=== PATIENT | male | born 1960 | race Caucasian/White ===

== ENCOUNTER 2017-03-09 12:55 | Inpatient (IN) | payer OTHER ==
[~2017-03-09] VITALS: Ht 193 cm; Wt 99.1 kg
--- NOTE | 2017-03-09 12:51 | ED.REPORT ---
HPI-Chest Pain 40 and Over Date of Service Mar 09, 2017 ED Provider: Boni Artis MD The patient is a 56 year old male with history of hypertension, and prior valve replacement on Coumadin, who was brought to the emergency department by EMS for a cardiac arrhythmia. The patient was lifting plywood when he suddenly developed diaphoresis, palpitations, chest pain, and dizziness. When medics arrived the patient was in ventricular tachycardia with a rate of 200 and a blood pressure of 98/50. He was given versed by medics, shocked with 100 joules , and was successfully converted to sinus rhythm. He was also given 324 mg aspirin by medics. He has never had similar symptoms in the past. Nursing Notes Stated Complaint: RESOLVED VT Nursing Notes Reviewed: Yes Allergies: Coded Allergies: No Known Allergies (Unverified , 03/09/17) Scheduled Aspirin (Aspirin) 81 Mg Tablet 81 MG PO DAILY Atorvastatin Calcium (Atorvastatin Calcium) 40 Mg Tablet 40 MG PO DAILY Lisinopril (Lisinopril) 10 Mg Tablet 10 MG PO DAILY Multivitamin (Men's Multi-Vitamin) 1 Each Tablet 1 EACH PO DAILY Warfarin Sodium (Warfarin Sodium) 7.5 Mg Tablet 7.5 MG PO THU,THU,,SAT,SUN Warfarin Sodium (Warfarin Sodium) 3 Mg Tablet 3.75 MG PO MON,FRI General Time Seen by MD: 12:49 Chief Complaint Other (cardiac arrhythmia) Hx Obtained From: Patient, EMS Arrived By: Ambulance Sudden in Onset?: Yes Onset Occurred: Just prior to arrival Context of Onset: Lifting Symptom Duration: Since onset Quality: Painful Severity: Current: Moderate Severity: Maximum: Severe Recent Healthcare: No recent doctor visit, No recent hospitalization Similar Sx Previous: No Past Medical History Past Medical History Hypertension Past Surgical History Valve replacement Family History Noncontributory Smoking History Current Some Day Smoker, Light Tobacco Smoker Social History Other Social History: Local resident Ambulatory Status Independent Review of Systems Cardiovascular: Reports: Chest pain, Palpitations Skin: Reports Diaphoresis Neurologic: Reports: Dizziness Complete sys rev & neg: except as marked. Physical Exam Initial Vital Signs Vital Signs (First) Date Time Temp Pulse Resp B/P Pulse Ox O2 Delivery O2 Flow Rate FiO2 03/09/17 12:52 36.2 84 15 119/85 95 Room Air Initial VS: Reviewed Head / Eyes: Atraumatic, Normocephalic, PERRL ENT: Mucous membranes moist, Conjunctiva normal, No scleral icterus Neck: Supple, Non-tender, Full range of motion Lymphatic: No lymphadenopathy Extremities: Vascular intact, Neuro intact, No swelling, No tenderness Skin: Warm, Dry, No cyanosis Neurologic: Alert, Oriented, Nonfocal Psychiatric: Mood/affect normal, Behavior normal, Normal thought content General/Constitutional: Awake, Alert, No acute distress, Well appearing Respiratory / Chest: Atraumatic, Breath sounds NL, Breath sounds = bilat, No respiratory distress, No rales, No rhonchi, No wheezing, No stridor, No chest tenderness Cardiovascular: Heart rate NL, Regular rhythm, Heart sounds NL, No murmurs, Peripheral circulation NL, Pulses = bilaterally, No gross BP differential Abdomen: Soft, Non-tender, McBurney's non-tender, No guarding, No rebound, BS normoactive, No distention, No hernia, No palpable mass Interpretation & Diagnostics Lab Results Interpretation Result Diagram: 03/09/17 1405 03/09/17 1405 Test 03/09/17 14:05 White Blood Count 15.2th/mm3 (3.8-10.1) Red Blood Count 5.01mil/mm3 (4.40-5.80) Hemoglobin 16.0g/dL (13.8-17.2) Hematocrit 45.5% (41.0-50.0) Mean Corpuscular Volume 90.8fL (81-100) Mean Corpuscular Hemoglobin 31.9pg (27.0-35.0) Mean Corpuscular Hemoglobin Concent 35.2% (32.0-37.0) Red Cell Distribution Width 13.4% (12.3-15.4) Platelet Count 199bil/L (150-400) Neutrophils (%) (Auto) 90.6% (40-74) Lymphocytes (%) (Auto) 4.4% (14-46) Monocytes (%) (Auto) 4.5% (4-12) Eosinophils (%) (Auto) 0.1% (0-5) Basophils (%) (Auto) 0.1% (0-3) Prothrombin Time 27.3sec (8.1-12.5) Prothromb Time International Ratio 2.50ratio Sodium Level 139mEq/L (134-144) Potassium Level 3.8mEq/L (3.5-5.2) Chloride Level 103mEq/L (97-108) Carbon Dioxide Level 19mmol/L (18-29) Blood Urea Nitrogen 15mg/dL (6-24) Creatinine 0.90mg/dL (0.76-1.27) Estimat Glomerular Filtration Rate 92mL/min (>59) Glucose Level 84mg/dL (60-99) Calcium Level 9.5mg/dL (8.5-10.1) Magnesium Level 2.1mg/dL (1.6-2.6) Total Bilirubin 0.7mg/dL (0.0-1.2) Aspartate Amino Transf (AST/SGOT) 58U/L (0-50) Alanine Aminotransferase (ALT/SGPT) 40U/L (0-44) Alkaline Phosphatase 71U/L (25-150) Troponin T 0.300ug/L (0.0-0.011) Total Protein 6.3g/dL (6.4-8.4) Albumin 4.1g/dL (3.4-5.0) ECG Interpretation ECG Interpretation: Sinus rhythm with a rate of 84 Left atrial enlargement LBBB Time: 13:00 Interpreted by: ED physician X-Ray Chest Interpretation Chest Xray Interpretation: IMPRESSION: No acute cardiopulmonary abnormality Dictated by: Miguel Maciel M.D. on 03/09/2017 at 13:32 Interpretation / Wet Read by: Interpret - Radiologist Re-Eval/Medical Decision Source of Hx: Old records, EMS Time of Eval: 16:15 Re-Evaluation/Progress Note: Rechecked the patient. Discussed plan for admission. All questions were addressed. Consultation #1: Referral / Consult Name: Jorge Robert MD Consulted With: Cardiology Call Returned at: 15:14 School Speech Language Pathologist: Agrees with eval, Agrees with plan Consultation #2: Referral / Consult Name: César Gonzalez MD Consulted With: Hospitalist Call Returned at: 17:31 School Speech Language Pathologist: Will see patient, Agrees with eval, Agrees with plan, Accepts admit Counseled Regarding: Diagnosis, Lab results, Need for admission Discharge & Departure Primary Impression: Ventricular tachycardia Additional Impression: Non-STEMI (non-ST elevated myocardial infarction) Disposition: ADMITTED TO HOSPITAL Discharge Condition All VS Reviewed: Yes Condition: Stable Scribe Attestation Portions of this note were transcribed by Danica Robertson. I, Dr. Artis personally performed the history, physical exam and medical decision-making; I reviewed and confirmed the accuracy of the information in the transcribed note. Signed by: Meg Fraser, 03/09/2017 at 1733. Boni Artis MD Mar 09, 2017 12:51 Danica Robertson Mar 09, 2017 12:54
[2017-03-09 12:52] VITALS: BP 119/85; PULSE 84; RESP 15; O2SAT 95
--- NOTE | 2017-03-09 13:34 | DRSVH ---
PROCEDURE: X-RAY CHEST ONE VIEW, PORTABLE ([id number]) INDICATIONS: V-Tachycardia TECHNIQUE: One view of the chest was acquired. COMPARISON: None. FINDINGS: Surgical changes and devices: Median sternotomy. Lungs and pleura: No pleural effusions or pneumothorax. Lungs are clear. Mediastinum: Mediastinal contours appear normal. Heart size is normal. Bones and chest wall: No suspicious bony lesions. Overlying soft tissues appear unremarkable. IMPRESSION: No acute cardiopulmonary abnormality Dictated by: Miguel Maciel M.D. on 03/09/2017 at 13:32 Approved by: Miguel Maciel M.D. on 03/09/2017 at 13:32
[2017-03-09 14:16] LABS: BASOPHILS % (AUTO) 0.1 % (0-3); EOSINOPHILS % (AUTO) 0.1 % (0-5); MONOCYTES % (AUTO) 4.5 % (4-12); Mean Corpuscular Hemoglobin 31.9 pg (27.0-35.0); Mean Corpuscular Volume 90.8 fL (81-100); NEUTROPHILS % (AUTO) 90.6 % (40-74); Platelet Count 199 bil/L (150-400)
[2017-03-09 14:32] LABS: INR 2.5 ratio
[2017-03-09 14:56] LABS: Magnesium 2.1 mg/dL (1.6-2.6)
[2017-03-09 14:58] VITALS: BP 103/66; PULSE 80; RESP 20; O2SAT 99
[2017-03-09 15:01] LABS: TROPONIN T 0.3 ug/L (0.0-0.011)
[2017-03-09] MEDS ORDERED: LISI10TA PO (17:02)
[2017-03-09] MEDS ORDERED: ATOR40TA69 PO (17:02)
[2017-03-09] MEDS ORDERED: WARF7.5T4 PO (17:02)
[2017-03-09] MEDS ORDERED: ASPI-973 PO (17:02)
[2017-03-09] MEDS ORDERED: MULT-544 PO (17:02)
[2017-03-09] MEDS ORDERED: WARF3TAB7 PO (17:02)
[2017-03-09] MEDS ORDERED: Ondansetron 2 mg/mL 2 mL Inj IVPUSH PRN ×2 (17:45→18:10)
[2017-03-09] MEDS ORDERED: Alum-Mag Hydrox-Simeth 30 mL Suspension PO PRN (17:45)
[2017-03-09] MEDS: 0.9% Sodium Chloride 1,000 ML IV SCH (18:06)
[2017-03-09] MEDS ORDERED: Heparin 5,000 Unit/mL Inj SUBQ SCH (18:10)
[2017-03-09] MEDS ORDERED: Polyethylene Glycol (PEG) 17 Gm Powder PO PRN (18:10)
--- NOTE | 2017-03-09 18:19 | PCM.HPMED ---
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 He has been doing well since that time. 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 He today was rushing back from work to his house and started to move around large sheets of plywood when he became acutely lightheaded and dyspneic and diaphoretic. He had no chest pain. Fell his heart pounding and laid down in his trailer. He called his who recommended that he stop drinking so much cough. He continues to live there for about another 10 minutes but had ongoing diaphoresis and palpitations. He then called 911. Medics found him to be in some sustained ventricular tachycardia. He was given presumably medazepam and then cardioverted into sinus rhythm. He immediately felt better. He has no known history of CAD. He denies exertional chest pain or diaphoresis or dyspnea. No history of palpitations. He has been working more recently than usual. Review of Systems: All else reviewed and otherwise unremarkable except as noted in history of present illness Allergies Coded Allergies: No Known Allergies (Unverified , 03/09/17) Home Medications Warfarin adjusted dose [facility] Strep viridans aortic valve endocarditis, 2000 Surgical History Mechanical aortic valve replacement 2000, [facility]. 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 No distress. Fluent speech. Normal affect. Normal skull. Normal nose and ears. Anicteric sclera, symmetric pupils Oropharynx is unremarkable, no facial droop. Neck is supple, normal thyroid. No adenopathy. Lungs are clear, normal effort rate. Heart is regular without murmur gallop or rub. Caloric test to Abdomen soft, nondistended or tender. Extremities are free of pedal edema. Good radial and pedal pulses. Skin is free of rash, lesions. No petechiae or ecchymosis. Joints are grossly normal. Cranial nerves are grossly normal. Motor strength is normal in all extremities. Normal muscular tone. Lab and Diagnostics Labs Troponin 0.300 Result Diagram: 03/09/17 1405 03/09/17 1405 X-Rays, CTs and MRIs Chest x-ray is unremarkable Assessment & Plan Sustained ventricular tachycardia, synchronized cardioversion prior to arrival per EMS. At this point to cardiology see the patient will use metoprolol to suppress further cardiac arrhythmias. Elevated troponin, POA. No evidence of acute coronary syndrome at this point. We will try troponins and risk stratify in 1-2 days with a Lexiscan. Buccal management was discussed with cardiology today. Mechanical aortic valve, POA. Continue warfarin per pharmacy. Patient is full resuscitation. Confirmed today. Inpatient status, anticipate 2 night's study. Pain Evaluation: Adequate Pain Control Resuscitation Status: CPR: Attempt Resuscitation Time spent 40 minutes César Gonzalez MD Mar 09, 2017 18:19
[2017-03-09 19:23] VITALS: BP 116/85; PULSE 78; RESP 20; O2SAT 98
[2017-03-09 19:46] VITALS: BP 114/74; PULSE 70; RESP 16; O2SAT 98
[2017-03-09 19:52] VITALS: PULSE 71
--- NOTE | 2017-03-09 20:54 | CONS ---
[address] [address] CONSULTATION REPORT PATIENT: CA GEE : 1960 MR#: [id number] ADMIT: 03/09/2017 JOB ID: [id number] DATE OF SERVICE: 03/09/2017 IDENTIFICATION: Dr. Boni Artis has asked that I consult on this 56-year-old man brought in by paramedics following cardioversion of a rapid wide-complex tachycardia. HISTORY: The patient's cardiac history dates back to 2000 when he apparently had a Strep viridans endocarditis affecting his aortic valve and requiring an aortic valve replacement. He does not remember any coronary angiography or bypass at that time. He subsequently did well and had an echocardiogram done in 2010 that showed normal left and right systolic function with mild LVH with a normal functioning mechanical prosthetic valve. He had moderate left atrial enlargement with mild mitral regurgitation, mild tricuspid regurgitation. He has not seen a orthopedic shoe maker in the last 5-6 years but is scheduled to see Dr. Damian Mcnulty in [facility] within the next month. He was in his usual state of good health when he was doing a house project today, lifting plywood that was more vigorous activity than usual. He also states that he had not had any breakfast and had consumed large quantities of coffee which was somewhat unusual for him. While lifting the plywood, he noted the onset of rapid regular palpitation that was associated with some weakness and diaphoresis. He sat down, but the discomfort persisted. He noted a very mild left chest pressure that he cannot further characterize. He denies any lightheadedness or presyncope or any dyspnea. Ultimately, he called his who subsequently called the paramedics. Upon their arrival, he reportedly was found to be in a wide-complex tachycardia, at around 200 beats per minute. His blood pressure was 98/50, and he was immediately shocked with 100 joules and was successfully converted to sinus rhythm with complete resolution of all of his symptoms. He was given aspirin and transported to the emergency department where he feels that he is now back to his normal self and is anxious to go home. He denies any previous such episodes, although six months ago, he did have an episode of lightheadedness for around 10 minutes but without any associated palpitations or weakness. He does no regular exercise but remains quite active and is currently building his own home. He has noted no exertional chest discomfort or dyspnea and notes no change in his exercise capacity. He has been maintained on warfarin with INRs followed by his primary care provider and without any out of range measurements. PAST MEDICAL HISTORY: Notable for hypertension and hyperlipidemia but otherwise denies any other health issues. HOME MEDICATIONS: Atorvastatin, lisinopril, and warfarin. FAMILY HISTORY: Father had an MD in his 60s and had atrial fibrillation. No other family history of heart disease. 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 He is . He admits to having around two beers per night on average. He continues to smoke around one pack a week as he has done for the last 20 years. REVIEW OF SYSTEMS: A complete review is performed and is notable for the absence of any fevers or chills. He has had no recent weight change or night sweats. Denies any vision change or ENT problems. Denies any dyspnea, cough, hemoptysis. No history of peptic ulcer disease or GI blood loss. Denies any genitourinary complaints or any unusual musculoskeletal complaints. Has never had a stroke or TIA. Denies any history of thyroid or bleeding disorder. No history of anxiety or depression. PHYSICAL EXAM: Healthy-appearing, middle-aged white male, in no distress, anxious to go home. HR 70, BP 127/88, O2 saturation 95% on room air. Skin: Warm and dry. Lungs: Clear to auscultation and percussion. CV: Nonpalpable PMI with a regular rhythm with a normal S1 and a crisp S2 with a 1/6 systolic ejection murmur. No gallops or rubs. JVP is 4 cm. Carotid and femoral pulses are 2+ bilaterally with a normal upstroke and no bruit. Dorsalis pedis is 2+ on the right, nonpalpable on the left, and posterior tibial pulses nonpalpable on the right and 2+ on the left. Abdomen: Soft, nondistended, nontender without any palpable masses or organomegaly. Normal bowel tones are present without bruits. Extremities: Warm without any clubbing, cyanosis, or edema. Neuro: Moves all four extremities. Psych: Awake, alert, and oriented. LABORATORY: White count is 15.2 with hematocrit of 45. INR is 2.5. Potassium is 3.8, with a magnesium level 2.1. BUN is 15 with creatinine 0.9. Initial troponin is 0.30. Chest x-ray: No acute abnormality. ECG: Personally reviewed and shows sinus rhythm at 84 BPM with a left bundle branch block with probable left atrial enlargement. There is also somewhat of LVH with strain pattern. IMPRESSION: 1. Wide complex tachycardia with associated weakness and hypotension. While this certainly could represent ventricular tachycardia, given the rapid rate, I am surprised that he did not have further hemodynamic compromise. An alternative explanation could be an supraventricular tachycardia that appeared like ventricular tachycardia because of his left bundle branch block. I will attempt to obtain the tracings from the paramedics to further evaluate this. For further evaluation, an echocardiogram will be performed to re-evaluate valvular and ventricular function. He will require an ischemic evaluation to exclude ischemic heart disease as a potential cause of his possible ventricular arrhythmias. I will discuss further with Dr. Nieves in regards to possible EP study versus proceeding with an implantable defibrillator based on those results. In the meantime, I would continue with his current medications with the addition of metoprolol 25 mg q.6 h. and insuring that his potassium stays greater than 4.0. Will attempt to obtain records from [email or web address]. 2. Status post AVR. Will be re-evaluated by echocardiography. 3. Hypertension. Continue current medications. 4. Hyperlipidemia. Lipid panel will be obtained tomorrow morning. 5. Tobacco addiction. The patient is counseled to stop. PLAN: 1. Continue home medications and initiate metoprolol 25 mg q.6 h. 2. Monitor heart rate and rhythm. 3. Continue to track cardiac enzymes and electrolytes. 4. Anticipate echocardiogram and a pharmacologic stress test in the next 48 hours with further consultation with Dr. Nieves, with further recommendations based on those results. I spent 1 hour 10 minutes reviewing the patient's medical record, interviewing and examining the patient, and documenting such. DARRYL
--- NOTE | 2017-03-09 21:14 | PCM.CONPHA ---
Subjective Date of Service: Mar 09, 2017 Syncopal episode, ventricular tachycardia Reason for Pharmacy Consult: Anticoagulation Management Objective Vital Signs Date Time Temp Pulse Resp B/P Pulse Ox O2 Delivery O2 Flow Rate FiO2 03/09/17 19:46 36.4 70 16 114/74 98 Room Air 03/09/17 19:23 36.4 78 20 116/85 98 03/09/17 14:58 36.2 80 20 103/66 99 Room Air 03/09/17 12:52 36.2 84 15 119/85 95 Room Air Weight (Kilograms): 99.700 Height (Feet): 6 Height (Inches): 4.00 Test 03/09/17 14:05 White Blood Count 15.2th/mm3 (3.8-10.1) Red Blood Count 5.01mil/mm3 (4.40-5.80) Hemoglobin 16.0g/dL (13.8-17.2) Hematocrit 45.5% (41.0-50.0) Mean Corpuscular Volume 90.8fL (81-100) Mean Corpuscular Hemoglobin 31.9pg (27.0-35.0) Mean Corpuscular Hemoglobin Concent 35.2% (32.0-37.0) Red Cell Distribution Width 13.4% (12.3-15.4) Platelet Count 199bil/L (150-400) Neutrophils (%) (Auto) 90.6% (40-74) Lymphocytes (%) (Auto) 4.4% (14-46) Monocytes (%) (Auto) 4.5% (4-12) Eosinophils (%) (Auto) 0.1% (0-5) Basophils (%) (Auto) 0.1% (0-3) Prothrombin Time 27.3sec (8.1-12.5) Prothromb Time International Ratio 2.50ratio Sodium Level 139mEq/L (134-144) Potassium Level 3.8mEq/L (3.5-5.2) Chloride Level 103mEq/L (97-108) Carbon Dioxide Level 19mmol/L (18-29) Blood Urea Nitrogen 15mg/dL (6-24) Creatinine 0.90mg/dL (0.76-1.27) Estimat Glomerular Filtration Rate 92mL/min (>59) Glucose Level 84mg/dL (60-99) Calcium Level 9.5mg/dL (8.5-10.1) Magnesium Level 2.1mg/dL (1.6-2.6) Total Bilirubin 0.7mg/dL (0.0-1.2) Aspartate Amino Transf (AST/SGOT) 58U/L (0-50) Alanine Aminotransferase (ALT/SGPT) 40U/L (0-44) Alkaline Phosphatase 71U/L (25-150) Troponin T 0.300ug/L (0.0-0.011) Total Protein 6.3g/dL (6.4-8.4) Albumin 4.1g/dL (3.4-5.0) Assessment/Plan Assessment/Plan WARFARIN MANAGEMENT A\ 56YO M ADMITTED FOR NSTEMI HISTORY INCLUDES MECHANICAL AORTIC VALVE HOME WARFARIN 3.75MG MON, FRI 7.5MG EVERY OTHER DAY OF WEEK GOAL INR= 2-3, CURRENT INR= 2.5 HCT=45.5 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
--- NOTE | 2017-03-09 22:06 | NUR ---
1935Admit note: Pt arrived to room#2 per wheelchair from ED at 1935. Pt was alert/orientated x3 was able to ambulate on to scale and into bed with out any problems. Denies any SOB or pain, tele was applied and rhythm was confirmed with environmental field technician SR rate in 80s. Admit was completed and pt made comfortable was given supplies to wash up. was here for short period of time and went home for the night.
[2017-03-09 23:48] VITALS: BP 115/75; PULSE 63; RESP 16; O2SAT 96
[2017-03-10] VITALS (9 sets, daily range): BP systolic 100–131; BP diastolic 61–78; PULSE 56–70; RESP 14–18; O2SAT 95–99
[2017-03-10] MEDS: 0.9% Sodium Chloride 1,000 ML IV SCH ×2 (04:06→13:54)
[2017-03-10 04:42] LABS: INR 2.28 ratio
[2017-03-10 05:23] LABS: Magnesium 2.1 mg/dL (1.6-2.6)
[2017-03-10 05:24] LABS: TROPONIN T 0.71 ug/L (0.0-0.011)
--- NOTE | 2017-03-10 09:32 | PCM.PHAPRO ---
Progress Warfarin Management by Pharmacy: -Indication: mechanical aortic valve replacement for strep viridans endocarditis -Home Dose: 3.75mg on MoFr and 7.5mg all other days -Inr Goal: 2-3 -Drug Interactions: none noted -Concurrent Anticoagulation: none noted -Coagulation Trends: [facility] -Mar 10-Mar 2.5 2.28 -0.22 3.75 6MG -Plan: will give the calculated weekly average of warfarin 6mg this evening Bridgette Redd [facility] Mar 10, 2017 09:32
--- NOTE | 2017-03-10 11:39 | DRSVH ---
[facility] [address] [place] [address] Echocardiogram Report Name: CA GEE PStudy Dk e: 03/10/2017 Height: 76 in Hospital Exam Location: [facility] Weight: 21 9 lb Gender: Male BSA: 2.3 m2 : 1960 Age: 56 yrs BP: 107/67 mmHg Reason For Study: V-TACH History: AVR Ordering Physician: HOSPITALIST [facility] Performed By: Samantha Stuart Referring Physician: Sandor Woodwardist Interpretation Summary Left ventricular systolic function is normal without focal wall motion abnormalities with the ejection fraction visually estimated to be 65-70%. There is mild-moderate concentric left ventricular hypertrophy with mild systolic anterior motion of the chordal apparatus but no Doppler evidence for significant left ventricular outflow tract obstruction. Assessment of diastolic parameters indicates normal left ventricular diastolic function and normal filling pressures. The right ventricle is at the upper limits of normal in size and right ventricular systolic function is normal. The right ventricular systolic pressure is estimated at 42 mmHg assuming a right atrial pressure of 3 mm Hg. The left atrium is severely dilated and the right atrium is mildly dilated. There is mild mitral regurgitation and mild tricuspid regurgitation. There is a well-seated bi-leaflet (St. [employer]htaq) aortic mechanical prosthesis with normal gradients through the prosthetic valve suggesting normal prosthetic aortic valve function. The ascending aorta and aortic arch are mildly enlarged. Procedure: A two-dimensional transthoracic echocardiogram with color flow and Doppler was performed. The study quality was technically good. There is no prior echocardiogram noted for this patient. The patient was in normal sinus rhythm during the exam. Left Ventricle: The left ventricle is normal in size. There is mild- moderate concentric left ventricular hypertrophy. The LVOT velocity is 1.5 m/s. The left ventricular outflow velocity with valsalva is 1.6. There is no echo evidence for significant left ventricular outflow tract obstruction. Left ventricular systolic function is normal without focal wall motion abnormalities. The ejection fraction is estimated to be 65-70%. Assessment of diastolic parameters indicates normal left ventricular diastolic function and normal filling pressures. Right Ventricle: The right ventricle is at the upper limits of normal in size. The right ventricular systolic function is normal. Atria: The left atrium is severely dilated. The right atrium is mildly dilated. The interatrial septum is intact with no evidence for an atrial septal defect. There is no Doppler evidence for an interatrial shunt. Mitral Valve: The mitral valve is normal in structure and function. There is systolic anterior motion of the chordal apparatus. There is mild mitral regurgitation. Aortic Valve: There is a bi-leaflet (St. Mushtaq) aortic mechanical prosthesis. The prosthetic aortic valve is well-seated. The gradients through the prosthetic aortic valve are within the normal range for this type of valve. The prosthetic aortic valve function is normal. No aortic regurgitation is present. Tricuspid Valve: The tricuspid valve leaflets are thin and pliable. The TR jet is eccentric. There is mild tricuspid regurgitation. The right ventricular systolic pressure is estimated at 42 mmHg assuming a right atrial pressure of 3 mm Hg. Pulmonic Valve: The pulmonic valve is not well seen, but is grossly normal. There is no pulmonic valvular regurgitation. Great Vessels: The aortic root is normal size. The ascending aorta is mildly enlarged. The aortic arch is mildly enlarged. The IVC is of normal diameter and collapses greater than 50% with a sniff. This suggests a low right atrial pressure of 3 mm Hg. Pericardium/ Pleura There is no pericardial effusion. There is no pleural effusion. MMode/2D Measurements & Calculations LVIDd: 4.8 cm RA long axis LVOT diam: 2.1 cm LVIDs: 3.7 cm LA A2 area: 30.9 cm Ao root diam FS: 23.6 % LA A4 area: 29.7 cm RA area EPSS: 0.12 cm LA length (vol) Aortic Jxn: 2.9 cm IVSd: 1.6 cm : 22.0 cm asc Aorta Diam LVPWd: 1.3 cm LA vol: 125.4 ml RA vol LA vol index : 72.7 ml Ao Arch Diam (Prox RA Trans): 3.2 cm : 31.6 mm2 IVC diam: 2.1 cm LV brian. diameter/BSA LV sys. diameter/BSA RVD1 (basal) RVD2 (mid): 3.2 cm (cm/m^2): 2.1 (cm/m^2): 1.6 TAPSE: 1.8 cm Doppler Measurements & Calculations Ao V2 max MV E max misael MV E/A: 1.7 TR max misael : 286.4 cm/sec : 68.8 cm/sec Med Peak E' Misael : 312.5 cm/sec Ao max PG MV A max misael TR max PG : 32.8 mmHg : 40.2 cm/sec E/E' med: 7.6 : 39.1 mmHg Ao mean PG MV P1/2t: 56.7 msec Lat Peak E' Misael PA V2 max : 19.1 mmHg : 100.6 cm/sec LVOT Max Misael E/E' lat: 5.5 PA mean PG : 153.3 cm/sec E/e' average: 6.5 PA Accel Time HIEU(I,D): 1.9 cm : 0.12 sec sev ratio MV dec time MV P1/2t max misael Ao V2 mean LV V1 max PG : 0.19 sec : 205.2 cm/sec MVA(P1/2t): 3.9 cm2 Ao V2 VTI: 53.9 cm LV V1 VTI HIEU(V,D): 1.8 cm2 : 31.1 cm PA V2 mean HIEU indexed to BSA : 72.8 cm/sec (cm^2/m^2): 0.84 Reading Physician:11:18 AM
--- NOTE | 2017-03-10 13:07 | PROG NOTE ---
[address] [address] PROGRESS NOTE PATIENT: CA GEE : 1960 MR#: [id number] ADMIT: 03/09/2017 JOB ID: [id number] DATE: 03/10/2017 The patient remains quite comfortable, feeling that he is at his normal baseline state. He has had no chest discomfort, dyspnea or palpitations. He is very anxious to go home. He reports that his PCP had recently started him on lisinopril because of hypertension, but he cannot relate any specific blood pressures. PHYSICAL EXAM: Healthy-appearing, middle-aged male who appears somewhat "high strung." HR 64, BP 118/75, O2 saturation 99% on room air. Lungs: Clear bilaterally to auscultation. CV: Regular rate and rhythm with a 1/6 systolic ejection murmur at the upper sternal border. Carotid pulses are 2+ with a normal upstroke. There is no JVD. Abdomen: Soft, nondistended. Extremities: Warm without edema. LABORATORY: His initial troponin of 0.30 increased to 0.71 and remained unchanged on the 3rd blood draw. His potassium is 5.0 with a BUN of 14 and a creatinine of 1.0. His INR today was 2.3. His ECG continues to show LVH with strain pattern with a borderline left bundle branch block. His echocardiogram shows vigorous LV systolic function with a normally functioning prosthetic valve with mild mitral and tricuspid regurgitation. He has severe left atrial enlargement and mild right atrial enlargement with mild to moderate concentric LVH but no evidence for any outflow tract obstruction. Pulmonary artery pressures are slightly increased at 42 mmHg but with a normal CVP of 3 mmHg. Telemetry: Shows only sinus rhythm. IMPRESSION: 1. Rapid wide-complex tachycardia. We have been unable to obtain the tracings from the paramedics to identify the mechanism of his tachycardia. I discussed the case with Dr. Nieves, who agrees that given the reported rate and absence of hemodynamic collapse that it more likely reflects an SVT than a VT. He agrees with an ischemic evaluation with consideration for a possible EP study following, although the patient is somewhat hesitant at this point. I would continue with metoprolol although will hold it in anticipation of a stress test tomorrow for an ischemic evaluation to ensure the absence of any underlying myocardial ischemia. If this is benign, then final decision can be made in regards to proceeding with an EP study versus impaired treatment with beta blockade. 2. Elevated troponin. I suspect this is more likely secondary from demand ischemia from his tachyarrhythmia and subsequent cardioversion rather than an acute coronary syndrome. Given this, I think it is safe to proceed with stress testing at this time. I will obtain a Lexiscan sestamibi study in lieu of an exercise treadmill test given his borderline LBBB. 3. Hypertension with probable hypertensive heart disease. His echocardiogram is consistent with hypertensive heart disease although his blood pressures appear to be fairly well controlled now that he is on lisinopril and metoprolol. 4. Borderline hyperlipidemia. His LDL here appears to be adequately controlled at 83. PLAN: 1. Continue to track troponins until they trend downward. 2. Obtain a pharmacologic phase of either myocardial perfusion imaging test tomorrow with further discussion in regard to proceeding with an EP study.
--- NOTE | 2017-03-10 14:54 | PCM.PNMED ---
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 Overnight: No acute events. Today: The patient feels well and denies any chest pain. He is very eager to go home. The remainder of the review of systems is negative except as noted above. Exam Vital Signs Vital Sign - Last Date Time Temp Pulse Resp B/P Pulse Ox O2 Delivery O2 Flow Rate FiO2 03/10/17 12:14 36.8 64 18 100/61 98 Room Air 03/10/17 08:30 1.50 Intake and Output 03/09/17 03/09/17 03/10/17 Cumulative From/Thru 15:00 23:00 07:00 03/09/17 12:52 - 03/10/17 06:40 Intake Total 750 ml 750 ml Output Total 2250 ml 2250 ml Balance -1500 ml -1500 ml Intake Oral 750 ml 750 ml Output Urine Total 2250 ml 2250 ml Exam Oriented 3. No distress. Fluent speech. Normal affect. Normal skull. Normal nose and ears. Anicteric sclera, symmetric pupils Oropharynx is unremarkable, no facial droop. Neck is supple, normal thyroid. No adenopathy. Lungs are clear, normal effort rate. Heart is regular with a crisp mechanical valve. Abdomen soft, nondistended or tender. Extremities are free of pedal edema. Skin is free of rash, lesions. No petechiae or ecchymosis. Joints are grossly normal. Cranial nerves are grossly normal. Motor strength is normal in all extremities. Normal muscular tone. 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 Wide complex tachycardia, likely SVT, but VT is a possibility, status post synchronized cardioversion prior to arrival per EMS. Present on admission, stable. -Cardiology consulted, we will follow recommendations -Pharmacologic stress test per cardiology tomorrow -Continue beta kaykay. Hold for stress test tomorrow. -Continue telemetry monitoring Elevated troponin, likely from demand ischemia, POA. -No evidence of acute coronary syndrome at this point. -Continue to trend troponin Mechanical aortic valve, POA. -Continue warfarin per pharmacy. Hypertension -Continue lisinopril and metoprolol Patient is full resuscitation. Disposition: Anticipate patient will be in the hospital for 1-2 more days. Resuscitation Status: CPR: Attempt Resuscitation Attending Statement Patient seen and examined with house staff. Agree with all attached documentation. Jocelyn Pickett DO Mar 10, 2017 14:06 César Gonzalez MD Mar 10, 2017 16:49
--- NOTE | 2017-03-10 17:27 | NUR ---
Ambulation Pt up walking in [place] multiple times today. Steady gait and steady vitals. No c/o chest pain or SOB. HR SR 60's-70's.
[2017-03-11] VITALS (7 sets, daily range): BP systolic 131–157; BP diastolic 73–91; PULSE 59–78; RESP 16–22; O2SAT 96–100
[2017-03-11] MEDS: 0.9% Sodium Chloride 1,000 ML IV SCH ×3 (00:06→19:43)
[2017-03-11 05:50] LABS: INR 1.45 ratio
--- NOTE | 2017-03-11 09:23 | NUR ---
Social Work Note: Screen Note Data& Assessment: EMR reviewed. Jase Gomez is a 56 year old male admitted on 03/09/2017 for V-tach and NSTEMI. Pt has [employer] insurance coverage and sees Lyndon Parker MD for primary care. Pt lives in [place] with family and is independent at baseline. Per RN, pt is ambulating the laton SB. SW to continue to follow for any pt needs or MD orders. No discharge needs identified at this time. Plan: Anticipated discharge home via POV when medically ready. SW to continue to follow for any pt needs or MD orders. No discharge needs identified at this time. MARY Toure
--- NOTE | 2017-03-11 11:48 | NUR ---
Note Patient denied having any pain, shortness of breath or discomfort. Patient ambulated in hallways without any difficulty. Patient was insisting on having a shower this morning prior to nuclear /stress test. Patient showered and was reconnected to telemetry afterwards. Patient remained madelyn to go for his test and hopefully be discharge home if test results allow it. Patient remained NPO with occasional ice chips only. Out for procedure mid-morning today.
--- NOTE | 2017-03-11 14:17 | DRSVH ---
PROCEDURE: 1 DAY PHARMACOLOGICAL STRESS TEST Rest and pharmacological stress myocardial perfusion SPECT with gated imaging and ejection fraction RADIOPHARMACEUTICAL: 8.3 mCi Tc-99m tetrafosmin IV at rest and 24.0 mCi Tc-99m tetrafosmin IV at peak effect of pharmacological stress. A [id number] was performed. INDICATIONS: 56 year-old man with ventricular tachycardia. Risk factors for coronary artery disease include hypertension, hyperlipidemia, smoking and family history. He has aortic valve replacement. TECHNIQUE: Radiopharmaceutical was injected at peak stress test, and also at rest. SPECT images wer e obtained. SPECT myocardial perfusion images were displayed in short axis, horizontal long axis, an d vertical long axis views. Gated images were reviewed using [employer] software. COMPARISON: None. CARDIAC STRESS: A pharmacologic stress test was performed under the supervision of an attending staff, using an infus ion of [employer]. Hemodynamic data: There is normal blood pressure and heart rate response to pharmacologic stress. Symptoms: The patient denied anginal chest pain. Aminophylline: Not needed EKG: No diagnostic changes of ischemia; her PVCs. FINDINGS: Raw data: There is good myocardial uptake of radiotracer. No significant motion artifacts. Left ventricle function: Gated images demonstrate normal left ventricular wall thickening. No segme ntal wall motion abnormalities. No transient ischemic dilation. Left ventricle resting end diastolic volume is normal. Left ventricle stress ejection fraction is 64%; normal range is above 45%. Myocardial perfusion: There is normal distribution of activity in the right and left ventricular erasmo cardium. No fixed or reversible perfusion defects. IMPRESSION: 1. Normal myocardial perfusion images. 2. Normal left ventricular volume and systolic function. 3. No chest pain or diagnostic EKG changes for ischemia. PQRS ATTESTATIONS: Measure 322 - Is this imaging test primarily performed on a low-risk surgery patient for preoperative evaluation within 30 days preceding their low-risk non-cardiac surgery? Low-risk surgery is defined as cardiac or myocardial infarction less than 1%, including (but not limited to) endoscopic pr ocedures, superficial procedures, cataract surgery, and excisional breast surgery: Answer: No Measure 323 - Is this imaging test performed primarily for the monitoring of an asymptomatic patient who had percutaneous coronary intervention on the visit date or within 2 years of the visit date? An swer: No Measure 324 - Is this imaging test performed primarily for the initial detection and risk assessment on an asymptomatic, low coronary heart disease patient? Low CHD risk definition = clinicians should consider the maximum number of available patient factors used to estimate risk based on [place] (A TP III criteria), typically age, gender, diabetes, smoking status, and use of blood pressure medicati on, and integrate age appropriate estimates for missing elements, such as LDL or standard blood press ure. Answer: No Dictated by: Cheyenne Bhandari M.D. on 03/11/2017 at 14:12 Approved by: Cheyenne Bhandari M.D. on 03/11/2017 at 14:15
--- NOTE | 2017-03-11 15:38 | PCM.PNMED ---
Subjective Date of Service Mar 11, 2017 Subjective He is doing well. No problems with palpitations, chest pain or dyspnea. His normal appetite. No difficulty with nausea or abdominal pain. No overnight events Exam Vital Signs Vital Sign - Last Date Time Temp Pulse Resp B/P Pulse Ox O2 Delivery O2 Flow Rate FiO2 03/11/17 13:23 70 16 151/87 100 Room Air 03/11/17 07:26 36.6 03/10/17 08:30 1.50 Intake and Output 03/10/17 03/10/17 03/11/17 Cumulative From/Thru 15:00 23:00 07:00 03/09/17 12:52 - 03/11/17 05:40 Intake Total 1954 ml 200 ml 2904 ml Output Total 1350 ml 1000 ml 4600 ml Balance 604 ml -800 ml -1696 ml Intake Oral 1954 ml 200 ml 2904 ml Output Urine Total 1350 ml 1000 ml 4600 ml # Bowel Movements 0 0 0 Exam Alert and oriented -3, no distress. Fluent speech Anicteric sclera. Lungs are clear with normal rate and effort Heart is regular without murmur gallop or rub Abdomen soft nontender, flat Extremities are free of edema. Skin is free of rash or lesions. 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 Wide complex tachycardia, likely SVT, but VT is a possibility, status post synchronized cardioversion prior to arrival per EMS. Present on admission, stable. -Cardiology consulted, we will follow recommendations -Pharmacologic stress test per cardiology tomorrow -Continue beta kaykay. Stress test reveals normal perfusion. -Continue telemetry monitoring Spoke with cardiology, they would like to offer an electrophysiology study for tomorrow March 12 Elevated troponin, likely from demand ischemia, POA. Stable -No evidence of acute coronary syndrome at this point. No further workup. Perfusion study normal and stress test. Mechanical aortic valve, POA. Stable -Continue warfarin per pharmacy. Hypertension, POA and stable -Continue lisinopril and metoprolol Patient is full resuscitation. Disposition: Discharge after transfusion cardiology workup. Resuscitation Status: CPR: Attempt Resuscitation César Gonzalez MD Mar 11, 2017 15:38
[2017-03-11] MEDS ORDERED: Warfarin 5 MG, Warfarin 2.5 MG PO ONE ×2 (17:00)
--- NOTE | 2017-03-11 18:19 | NUR ---
Nuclear test follow up Patient returned from nuclear test this afternoon. Patient continued to deny having any pain, shortness of breath or discomfort however he was anxious to go home. Patient was seen by attending aircraft accessories mechanic this evening. Patient to remain in the hospital for follow up EP study tomorrow. Patient and his both agreed to this procedure. Patient was encouraged to take PO fluids this evening he understood his NPO status after midnight tonight for procedure tomorrow. Patient and his were able to view hospital provided EP study internet video/education this evening.
--- NOTE | 2017-03-11 20:05 | NUR ---
Metoprolol Holding metoprolol per Dr. Irwin, patient scheduled for until electrophysiology cadiac study at noon tomorrow.
[2017-03-12] VITALS (14 sets, daily range): BP systolic 124–151; BP diastolic 73–92; PULSE 64–75; RESP 13–25; O2SAT 95–99
[2017-03-12 05:50] LABS: INR 1.15 ratio
--- NOTE | 2017-03-12 06:29 | NUR ---
Cardiac/EP study Patient independent in room, slept well and NPO since midnight for EP study, HR 64 at this time with [address] depression, denied any pain this shift, no distress noted, uneventful shift, will continue to monitor. Addendum: 03/12/17 at 0631 by NICHOLE PAK RN Amended: Links added.
--- NOTE | 2017-03-12 12:17 | PCM.PHAPRO ---
Progress Date of Service: Mar 12, 2017 Date 3-Mar 10-Mar 11-Mar 12-Mar INR 2.5 2.28 1.45 1.15 INR change -0.22 -0.83 -0.3 Warf Dose 3.75 HOLD 7.5 7.5MG Sara Escalante PharmD Mar 12, 2017 12:17
[2017-03-12 13:08] LABS: BASOPHILS % (AUTO) 0.6 % (0-3); EOSINOPHILS % (AUTO) 1.6 % (0-5); MONOCYTES % (AUTO) 9.4 % (4-12); Mean Corpuscular Hemoglobin 31.9 pg (27.0-35.0); NEUTROPHILS % (AUTO) 64.7 % (40-74); Platelet Count 207 bil/L (150-400)
[2017-03-12] MEDS ORDERED: fentaNYL-PF 50 mCg/mL 2 mL Inj ONE (14:23)
[2017-03-12] MEDS ORDERED: Heparin 10,000 Unit/1,000 mL NS Premix IV ONE (14:36)
[2017-03-12] MEDS ORDERED: Vancomycin 1,000mg/200 mL NS IV ONE (14:46)
[2017-03-12] MEDS ORDERED: Isoproterenol 200 mCg/50 mL D5W IV IV ONE ×2 (15:19→15:44)
--- NOTE | 2017-03-12 15:24 | NUR ---
Social Work: Multidisciplinary Rounds and Readiness for d/c D: Pt discussed in multidisciplinary rounds. Pt is scheduled for a stress test today and is anticipated to be ready for discharge after this. Team identified no sw needs or concerns re: pt's ability to care for self . EMR reviewed, pt has been ambulating I during admission and no sw needs or concerns have been identified at this time. A: Pt who is I at baseline. P: Anticipate pt to discharge home via POV and no sw needs; BLACKJACK DEALER to continue to follow to assess for discharge needs if they arise. MARY Deleon
[2017-03-12] MEDS: 0.9% Sodium Chloride 1,000 ML IV SCH (16:06)
[2017-03-12] MEDS ORDERED: Warfarin 2.5 MG, Warfarin 5 MG PO ONE ×2 (17:00)
--- NOTE | 2017-03-12 17:29 | NUR ---
EP STUDY At 1400 patient transferred to [facility] for EP study. Second IV access started prior to departure, patient denies pain, nausea, and shortness of breath. NPO, s/l x2, RA, CBC drawn and showed WBC within normal limits. At 1730 report from Olena GODINEZ at [facility] states patient has right and left groin sites, which will have manual pressure, total of four punctures, patient to remain down until 2100, able to eat and drink and will return to floor at 1900. Plan to observe overnight, telemetry 50-60. Sub-therapeutic INR, 100mg Lovenox tubed to [facility].
--- NOTE | 2017-03-12 18:41 | PCM.PNMED ---
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 Overnight: No acute events. Today: The patient states he is quite anxious to be discharged and does not want to remain in the hospital much longer. The remainder of the review of systems is negative except as noted above. Exam Vital Signs Vital Sign - Last Date Time Temp Pulse Resp B/P Pulse Ox O2 Delivery O2 Flow Rate FiO2 03/12/17 18:00 74 15 125/73 96 Room Air 03/12/17 13:47 36.6 03/10/17 08:30 1.50 Intake and Output 03/11/17 03/11/17 03/12/17 Cumulative From/Thru 15:00 23:00 07:00 03/09/17 12:52 - 03/12/17 05:14 Intake Total 1840 ml 740 ml 5484 ml Output Total 1100 ml 2175 ml 7875 ml Balance 740 ml -1435 ml -2391 ml Intake Oral 1840 ml 740 ml 5484 ml Output Urine Total 1100 ml 2175 ml 7875 ml # Voids 5 5 # Bowel Movements 0 0 Exam Oriented 3. No distress. Fluent speech. Normal affect. Normal skull. Normal nose and ears. Anicteric sclera, symmetric pupils Oropharynx is unremarkable, no facial droop. Neck is supple, normal thyroid. No adenopathy. Lungs are clear, normal effort rate. Heart is regular with a crisp mechanical valve. Abdomen soft, nondistended or tender. Extremities are free of pedal edema. Skin is free of rash, lesions. No petechiae or ecchymosis. Joints are grossly normal. Cranial nerves are grossly normal. Motor strength is normal in all extremities. Normal muscular tone. 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 Wide complex tachycardia, likely SVT, but VT is a possibility, status post synchronized cardioversion prior to arrival per EMS. Present on admission, stable. -Cardiology consulted, we will follow recommendations -Continue beta kaykay. Stress test reveals normal perfusion. -Continue telemetry monitoring. -EPS study today Elevated troponin, likely from demand ischemia, POA. Stable -No evidence of acute coronary syndrome at this point. -No further workup. Perfusion study normal and stress test. Mechanical aortic valve, POA. Stable -Continue warfarin per pharmacy. Hypertension, POA and stable -Continue lisinopril and metoprolol Patient is full resuscitation. Disposition: Discharge tomorrow. Resuscitation Status: CPR: Attempt Resuscitation Attending Statement The patient was seen and examined with staff. Agree with all attached documentation. Jocelyn Pickett DO Mar 12, 2017 18:31 César Gonzalez MD Mar 13, 2017 10:30
--- NOTE | 2017-03-12 19:09 | NUR ---
[facility] EP STUDY PT AND HIS NURSING CARE WERE TRANSFERRED BACK TO ROOM 2021 AT 1900. BILATERAL GROINS HAVE BEEN SOFT, NON TENDER, NO BLEEDING NOTED SINCE RETURN FROM METALIZING MACHINE OPERATOR AT 1700. PT HAS TOLERATED MEAL AND ALSO VOIDED PER URINAL. REPORT GIVEN TO BOB Perea RN. TELE ON. HEPARIN DOSE ADMINISTRATION TIME CLARIFIED WITH DR MERRILL.
--- NOTE | 2017-03-12 19:18 | PROCED ---
[address] [address] PROCEDURE NOTE PATIENT: CA GEE : 1960 MR#: [id number] ADMIT: 03/09/2017 JOB ID: [id number] DATE OF SERVICE: 03/12/2017 PREOPERATIVE DIAGNOSIS(ES): Wide complex tachycardia. POSTOPERATIVE DIAGNOSIS(ES): Wide complex tachycardia. PROCEDURES PERFORMED: 1. Comprehensive electrophysiology study. 2. Arrhythmia provocation. 3. Arrhythmia provocation with isoproterenol infusion. 4. Fluoroscopy. SURGEON: Manager Management: Vishnu Nieves MD, electrophysiology attending ASSISTANTS: Morris Archibald. ANESTHESIA: Very gentle dosing of Versed and fentanyl was utilized for an appropriate level of sedation. 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 He was found to be in a rapid wide complex tachycardia at greater than 200 beats per minute. He was promptly cardioverted and has remained hemodynamically stable and was without dysrhythmia in the hospital. Echocardiography was reassuring, as was nuclear perfusion stress testing. Given the wide complex nature of his tachycardia I recommended an EP study to assess for inducibility of ventricular tachycardia. We discussed the risks benefits of the EP study in detail and ultimately he wished to proceed. PROCEDURAL DESCRIPTION: Following informed consent, the patient was taken to the EP laboratory in a fasting nonsedated state, where he was prepped in the usual sterile fashion. The bilateral groins were infiltrated with 1% lidocaine, then using modified Seldinger technique two 6-Micronesian sheaths were inserted into the right femoral vein nd a 7- and 8-Micronesian sheath were inserted into the left femoral vein. Under fluoroscopic guidance, a deflectable decapolar catheter was advanced to the coronary sinus with the most proximal bipoles at the os of the sinus. A Ezekiel quadripolar catheter was advanced to the RV apex and a CRD2 His catheter was advanced to the His position. A comprehensive electrophysiology study was undertaken with right atrial pacing recording, right ventricular pacing recording, His bundle recording, and left atrial pacing via the coronary sinus catheter. Retrograde conduction showed a concentric atrial activation pattern. Antegrade conduction showed varying degrees of left bundle branch aberrancy, with faster rates. On a few occasions we did see an antegrade jump with at most one single echo. Aggressive induction maneuvers were performed from the ventricle with single, double, and triple extrastimuli at multiple cycle lengths, both on and off isoproterenol to a maximal dose of 4 mcg/minute. Despite these aggressive maneuvers, no dysrhythmias were induced, neither atrial nor ventricular. Therefore, no ablation was performed. All catheters and sheaths were removed. Manual pressure was held for hemostasis. The patient was transferred to the [facility] for monitoring and bed rest. COMPLICATIONS: None. ESTIMATED BLOOD LOSS: Negligible. FINDINGS: 1. Baseline rhythm is sinus with an RR interval of 890 msec, TN 176 msec, QRS 118 msec, and a left bundle branch morphology. QT interval 427 msec. 2. Intracardiac intervals: AH interval 105 msec, HV 50 msec. 3. Retrograde conduction: Atrial activation was concentric. VA Wenckebach is seen at 290 msec. Ventricular ERP is 240 msec at a [address] 4. Antegrade conduction: AV Wenckebach is seen 290 msec. Fast pathway ERP is 280 msec at a [address] Again on one or two occasions a single typical echo was seen without inducible dysrhythmia. 5. No inducible ventricular or supraventricular dysrhythmia was identified in this patient. IMPRESSION: Normal EP study with varying degrees of left bundle branch block aberrancy and a rare single echo. PLAN: 1. Bed rest for 4 hours. 2. Beta blockade. 3. Resume anticoagulation for mechanical aortic valve. 4. Follow up with either our clinic or Dr. Mcnulty's clinic in [place] in the next few weeks with monitoring. Given the overall hemodynamic stability of the patient while in wide complex tachycardia in the field, I feel that this was most likely a supraventricular tachycardia and therefore did not offer the patient an ICD implant. ATTENDING STATEMENT: Vishnu Nieves MD, electrophysiology attending, was present for and supervised/performed all aspects of this procedure.
[2017-03-13] MEDS: 0.9% Sodium Chloride 1,000 ML IV SCH (02:06)
[2017-03-13 03:25] LABS: INR 1.16 ratio
[2017-03-13 03:33] VITALS: BP 129/81; PULSE 56; RESP 16; O2SAT 96
--- NOTE | 2017-03-13 04:58 | NUR ---
Sleep/DC Pt reports goal of care is to get adequate sleep. Care clustered for limited interruption. Reports getting adequate sleep. Pt very assertive that he would like to be discharged home today [facility]ARRIS. Informed pt this will get handed off in report. Awaiting day team and labs. Care ongoing
[2017-03-13 05:18] VITALS: PULSE 60
[2017-03-13 07:46] VITALS: BP 124/81; PULSE 56; RESP 16; O2SAT 97
[2017-03-13 07:47] VITALS: PULSE 56
[2017-03-13] MEDS ORDERED: LOV100 SUBQ (07:53)
[2017-03-13 08:00] VITALS: PULSE 62
--- NOTE | 2017-03-13 08:05 | PCM.DIMED ---
Jocelyn Pickett DO 03/12/17 1659: Discharge Instructions Date of Service Mar 12, 2017 Dates of Hospitalization Mar 09, 2017 at 17:57 Discharge Diagnosis Discharge Diagnosis Wide complex tachycardia SVT status post synchronized cardioversion prior to arrival per EMS. Present on admission, stable. Elevated troponin, likely from demand ischemia, POA. Stable Mechanical aortic valve, POA. Stable Hypertension, POA and stable Medication Instructions Additional med instructions Please continue to take Warfarin. Please check your INR in a few days. Please give yourself twice daily Lovenox shots while your INR comes up to 2.5. As you know, this needs to be done for your prosthetic valve. You were also started on a beta kaykay. Diet Discharge Diet: No restrictions Patient Instructions Patient Instructions Please follow up with your regular doctor in about 1 week. You will need to give yourself anticoagulation shots twice a day for up to a week while your INR increases to 2.5. Please follow up with Coumadin clinic. Follow-up plan Follow up with either with Dr. Nieves or Dr. Mcnulty's clinic in [facility] the next few weeks with monitoring. Follow-up Provider: Marcos Tomlinson MD Follow-up with PCP in: 1 week Provider: JEREMY MCNULTY MD Follow-up in: 2 weeks César Gonzalez MD 03/13/17 1030: Discharge Instructions Attending's Statement The patient was seen and examined with staff. Agree with all attached documentation. Jocelyn Pickett DO Mar 12, 2017 16:59 César Gonzalez MD Mar 13, 2017 10:30
[2017-03-13] MEDS ORDERED: METO25TA6 PO (08:15)
--- NOTE | 2017-03-13 09:25 | NUR ---
Discharge note/Lovenox teaching Patient a/o x 4, denies chest pain, nausea or sob. OOB amb indep, steady gait. VSS, tele SB 50's, Metoprolol held this a.m. IV SL and tele removed intact. Patient given discharge instructions, prescriptions, med rec, info on diagnosis and new meds. All questions answered. Lovenox teaching done with patient and she was able to give return demo and injection without difficulty. Patient amb to car with all belongings and discharged home with .
--- NOTE | 2017-03-19 14:06 | PCM.DC.MED ---
Discharge Summary Date of Service Mar 19, 2017 Dates of Hospitalization Date of Hospital Admission Mar 09, 2017 at 17:57 Date of Discharge: Mar 13, 2017 Providers: Admitting Physician: César Gonzalez MD Primary Care Physician: Lyndon Parker MD Attending Physician: César Gonzalez MD Diagnosis at Time of Discharge Diagnosis at Time of Discharge Wide complex tachycardia SVT status post synchronized cardioversion prior to arrival per EMS. Present on admission, stable. Elevated troponin, likely from demand ischemia, POA. Stable Mechanical aortic valve, POA. Stable Hypertension, POA and stable Consultations Cardiology Procedures XRay, CTs & MRIs Chest x-ray is unremarkable Brief History From Dr. 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 He has been doing well since that time. 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 He today was rushing back from work to his house and started to move around large sheets of plywood when he became acutely lightheaded and dyspneic and diaphoretic. He had no chest pain. Fell his heart pounding and laid down in his trailer. He called his who recommended that he stop drinking so much cough. He continues to live there for about another 10 minutes but had ongoing diaphoresis and palpitations. He then called 911. Medics found him to be in some sustained ventricular tachycardia. He was given presumably medazepam and then cardioverted into sinus rhythm. He immediately felt better. He has no known history of CAD. He denies exertional chest pain or diaphoresis or dyspnea. No history of palpitations. 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 Wide complex tachycardia, likely SVT, but VT is a possibility, status post synchronized cardioversion prior to arrival per EMS. Present on admission, stable. -Cardiology consulted -Continued beta kaykay. Stress test reveals normal perfusion. -Continued telemetry monitoring. -EPS study failed to elicit an arrhythmia Elevated troponin, likely from demand ischemia, POA. Stable -No evidence of acute coronary syndrome at this point. -No further workup. Perfusion study normal and stress test. Mechanical aortic valve, POA. Stable -Continued warfarin per pharmacy. Hypertension, POA and stable -Continued lisinopril and metoprolol Exam Vital Signs (Last) Date Time Temp Pulse Resp B/P Pulse Ox O2 Delivery O2 Flow Rate FiO2 03/13/17 08:00 62 03/13/17 07:46 36.7 16 124/81 97 Room Air Exam Oriented 3. No distress. Fluent speech. Normal affect. Normal skull. Normal nose and ears. Anicteric sclera, symmetric pupils Oropharynx is unremarkable, no facial droop. Neck is supple, normal thyroid. No adenopathy. Lungs are clear, normal effort rate. Heart is regular with a crisp mechanical valve. Abdomen soft, nondistended or tender. Extremities are free of pedal edema. Skin is free of rash, lesions. No petechiae or ecchymosis. Joints are grossly normal. Cranial nerves are grossly normal. Motor strength is normal in all extremities. Normal muscular tone. Test 03/09/17 14:05 03/10/17 04:15 03/10/17 12:55 03/12/17 13:00 Total Bilirubin 0.7mg/dL (0.0-1.2) Aspartate Amino Transf (AST/SGOT) 58U/L (0-50) Alanine Aminotransferase (ALT/SGPT) 40U/L (0-44) Alkaline Phosphatase 71U/L (25-150) Total Protein 6.3g/dL (6.4-8.4) Albumin 4.1g/dL (3.4-5.0) Sodium Level 142mEq/L (134-144) Potassium Level 5.0mEq/L (3.5-5.2) Chloride Level 106mEq/L (97-108) Carbon Dioxide Level 23mmol/L (18-29) Blood Urea Nitrogen 14mg/dL (6-24) Creatinine 0.96mg/dL (0.76-1.27) Estimat Glomerular Filtration Rate 86mL/min (>59) Glucose Level 111mg/dL (60-99) Calcium Level 9.6mg/dL (8.5-10.1) Magnesium Level 2.1mg/dL (1.6-2.6) Triglycerides Level 100mg/dL (0-149) Cholesterol Level 143mg/dL (100-199) LDL Cholesterol, Calculated 83.000mg/dL (0-99) VLDL Cholesterol 20.000mg/dL HDL Cholesterol 40mg/dL (>39) Cholesterol/HDL Ratio 3.58 (0.0-4.4) Thyroid Stimulating Hormone (TSH) 1.270uIU/mL (0.450-4.500) Troponin T 0.503ug/L (0.0-0.011) White Blood Count 6.3th/mm3 (3.8-10.1) Red Blood Count 5.21mil/mm3 (4.40-5.80) Hemoglobin 16.6g/dL (13.8-17.2) Hematocrit 47.4% (41.0-50.0) Mean Corpuscular Volume 91.0fL (81-100) Mean Corpuscular Hemoglobin 31.9pg (27.0-35.0) Mean Corpuscular Hemoglobin Concent 35.0% (32.0-37.0) Red Cell Distribution Width 13.3% (12.3-15.4) Platelet Count 207bil/L (150-400) Neutrophils (%) (Auto) 64.7% (40-74) Lymphocytes (%) (Auto) 23.5% (14-46) Monocytes (%) (Auto) 9.4% (4-12) Eosinophils (%) (Auto) 1.6% (0-5) Basophils (%) (Auto) 0.6% (0-3) Test 03/13/17 02:50 Prothrombin Time 12.5sec (8.1-12.5) Prothromb Time International Ratio 1.16ratio Discharge Medications Discharge Medications Aspirin (Aspirin) 81 Mg Tablet 81 MG PO DAILY (Reported) Atorvastatin Calcium (Atorvastatin Calcium) 40 Mg Tablet 40 MG PO DAILY ( Reported) Enoxaparin (Lovenox) 100 Mg/Ml Syringe 100 MG SUBQ Q12 Prescribed by: BECKY PICKETT DO Lisinopril (Lisinopril) 10 Mg Tablet 10 MG PO DAILY (Reported) Metoprolol Tartrate (Metoprolol Tartrate) 25 Mg Tablet 25 MG PO BID Prescribed by: BECKY PICKETT DO Multivitamin (Men's Multi-Vitamin) 1 Each Tablet 1 EACH PO DAILY (Reported) Warfarin Sodium (Warfarin Sodium) 7.5 Mg Tablet 7.5 MG PO E,THU,THUR,SAT,SUN ( Reported) Warfarin Sodium (Warfarin Sodium) 3 Mg Tablet 3.75 MG PO MON,FRI (Reported) Additional med instructions Please continue to take Warfarin. Please check your INR in a few days. Please give yourself twice daily Lovenox shots while your INR comes up to 2.5. As you know, this needs to be done for your prosthetic valve. You were also started on a beta kaykay. Followup Plan Follow-up plan Follow up with either with Dr. Nieves or Dr. Mcnulty's clinic in [facility] the next few weeks with monitoring. Discharge Diet: No restrictions Patient Instructions Please follow up with your regular doctor in about 1 week. You will need to give yourself anticoagulation shots twice a day for up to a week while your INR increases to 2.5. Please follow up with Coumadin clinic. Follow-up Provider: Marcos Tomlinson MD Follow-up with PCP in: 1 week Provider: JEREMY MCNULTY MD Follow-up in: 2 weeks Becky Pickett DO Mar 19, 2017 14:06
== END 2017-03-13 09:26 | disposition home or self-care (01) | DRG 274 ==
LOC: SED 12:55 → EDBD 12:55 → PCC 17:57
PROVIDERS: ADMIT Hospitalist; ATTEND Hospitalist
PROC: 4A023FZ Measurement of Cardiac Rhythm, Percutaneous Approach (ICD-10-PCS; principal; 2017-03-12)
PROC: 4A0234Z Measurement of Cardiac Electrical Activity, Percutaneous Approach (ICD-10-PCS; 2017-03-12)
DX: I47.2 Ventricular tachycardia (principal); I24.8 Other forms of acute ischemic heart disease; I10 Essential (primary) hypertension; Z95.2 Presence of prosthetic heart valve; Z79.01 Long term (current) use of anticoagulants; F17.210 Nicotine dependence, cigarettes, uncomplicated; E78.5 Hyperlipidemia, unspecified